=== PATIENT | female | born 1980 ===

== ENCOUNTER 2018-05-27 10:16 | Outpatient (CLI) | payer OTHER | END 2018-05-27 10:17 | disposition home or self-care (01) | LOC: C.LAB 10:16 | DX: D17.9 Benign lipomatous neoplasm, unspecified (principal) ==

== ENCOUNTER 2018-06-02 09:11 | Day surgery (SDC) | payer OTHER ==
[2018-05-26 13:30] VITALS: BMI 36.6
[2018-06-02 10:11] VITALS: O2SAT 100
[2018-06-02] MEDS ORDERED: Lidocaine/Epinephrine 1% 1:100000 10 ML IJ ONE (11:57)
[2018-06-02] MEDS ORDERED: Midazolam 2 MG/2 ML VIAL ONE (11:57)
[2018-06-02] MEDS ORDERED: Bupivacaine HCl 0.25% PF (10 ml) Inj ONE (11:57)
[2018-06-02] MEDS ORDERED: Propofol 10 mg/ml Inj (20 ML) ONE (11:57)
[2018-06-02] MEDS ORDERED: ceFAZolin 1 gm in NS 1 GM/100 ML BAG IVPB ONE (11:57)
[2018-06-02] MEDS ORDERED: Lidocaine Hydrochloride 5 ML INJ ONE (11:57)
[2018-06-02] MEDS ORDERED: DiphenhydrAMINE 50 mg/ml Inj ONE (12:29)
[2018-06-02] MEDS ORDERED: HYDROmorphone 0.5 mg/0.5 ml ISec IVP PRN (13:01)
--- NOTE | 2018-06-02 13:02 | PCM.SURG1 ---
Surgeon's Initial Post Op Note - Surgeon's Notes Surgeon: Dr. Kaur Supervisor Webbing: Dr. Wolfe PGY3 Type of Anesthesia: IV Sedation, Local Pre-Operative Diagnosis: back lipoma Operative Findings: see dictation Post-Operative Diagnosis: same Operation Performed: exicison of Right and left back lipoma Specimen/Specimens Removed: right and left back lipoma Estimated Blood Loss: EBL {In ML}: 10 Blood Products Given: N/A Drains Used: No Drains Post-Op Condition: Good Date of Surgery/Procedure: 06/02/18 Time of Surgery/Procedure: 13:02
[2018-06-02 14:56] VITALS: BP 104/68; PULSE 72; RESP 17; TEMP 98.2
--- NOTE | 2018-06-03 05:55 | OP ---
PROCEDURE DATE: 06/02/2018 PREOPERATIVE DIAGNOSES: 1. Lipoma of the right mid back. 2. Lipoma of the left mid back. POSTOPERATIVE DIAGNOSES: 1. Lipoma of the right mid back. 2. Lipoma of the left mid back. PROCEDURES DONE: 1. Excision of lipoma of the right mid back, approximately 3 x 2 cm size. 2. Layered closure of the wound of the right mid back, 3 x 1 cm size. 3. Excision of lipoma of the left mid back, approximately 2 x 1 cm size. 4. Layered closed of the wound of the left mid back 3 x 1 cm size. ANESTHESIA: Local anesthesia. ESTIMATED BLOOD LOSS: Around 10 mL. DRAINS: None. PATHOLOGY: Lipoma of the left mid back and right mid back was sent for the pathology. COMPLICATIONS: None. INTRAOPERATIVE FINDINGS: The patient had right mid back 3 x 2 cm size and left mid back 2 x 1 cm lipoma. DESCRIPTION OF PROCEDURE: On intraoperative steps, this is a 38-year-old female who was diagnosed with a lipoma of the mid back, and the patient was consented for excision, brought to the OR, placed supine on the operating table. After induction of the anesthesia, the back was prepped and draped in usual sterile fashion. The patient was placed in a prone position and local anesthesia was injected at the post-lipoma side. Incision was made. Upper and lower flap was created. The dissection was getting down deep up to the underlying fascia and muscles and the lipoma was completely excised, and it was sent off the table for the pathology. The wound was irrigated and now the layered closed of the wound was done, the deep subcu with 3-0 Vicryl, superficial subcu with 2-0 Vicryl, and skin with a 4-0 Monocryl. Dry sterile dressing was applied. The patient tolerated the procedure well. Now the incision was made on the left side. Upper and lower flaps were created. The dissection was done on the lipoma of the left side. The specimen was sent off the table for the pathology. The wound was irrigated and hemostasis was achieved. Multilayer closure of the wound was done. Deep subcu with 2-0 Vicryl, superficial subcu with 3-0 Vicryl, and skin with 4-0 Monocryl and dry sterile dressing was applied. The patient tolerated the procedure well. Count of the instrument and gauze was correct. There was no apparent complication. The patient was reversed from sedation and sent to the postanesthesia care unit in stable condition. Adan Kaur MD
== END 2018-06-02 15:24 | disposition home or self-care (01) ==
LOC: C.SDS 09:11
PROVIDERS: ATTEND Surgery Surgical Critical Care
DX: D17.9 Benign lipomatous neoplasm, unspecified (principal); D17.1 Benign lipomatous neoplasm of skin and subcutaneous tissue of trunk
CPT/HCPCS: 11406; 12032; 88304; J0690; J2250; J2704; J3010